=== PATIENT | female | born 1975 | race Caucasian/White ===

== ENCOUNTER 2018-01-19 18:51 | Emergency (ER) | payer MEDICAID ==
[~2018-01-19] VITALS: Ht 162.6 cm; Wt 98.2 kg
[2018-01-19 19:28] LABS: BASOPHILS # (AUTO) 0.06 x10^3/uL (0-0.1); BASOPHILS % (AUTO) 1 % (0-1); EOSINOPHILS # (AUTO) 0.15 x10^3/uL (0-0.4); EOSINOPHILS % (AUTO) 2 % (1-7); LYMPHOCYTES # (AUTO) 2.66 x10^3/uL (1-3.4); LYMPHOCYTES % (AUTO) 33 % (22-44); MD NO; MEAN CORPUSCULAR HEMOGLOBIN 26.3 pg (27.0-34.8); MEAN CORPUSCULAR HGB CONC 32.9 g/dL (32.4-35.8); MEAN CORPUSCULAR VOLUME 79.9 fL (80-100); MEAN PLATELET VOLUME 8.5 fL (7.4-10.4); MONOCYTES # (AUTO) 0.67 x10^3/uL (0.2-0.8); MONOCYTES % (AUTO) 8 % (2-9); NEUTROPHILS # (AUTO) 4.62 x10^3/uL (1.8-6.8); NEUTROPHILS % (AUTO) 57 % (42-75); PLATELET COUNT 345 x10^3/uL (130-400); RED BLOOD COUNT 4.75 x10^6/uL (3.82-5.3); RED CELL DISTRIBUTION WIDTH 15.9 % (9.6-15.2)
[2018-01-19] MEDS ORDERED: SODIUM CHLORIDE FLUSH 10ML SYR IVF ONE (19:30)
[2018-01-19 19:37] LABS: ALBUMIN 3.6 g/dL (3.4-5.0); ANION GAP 6 mmol/L (5-15); CALCIUM 8.3 mg/dL (8.5-10.1); CHLORIDE 111 mmol/L (98-107); CREATININE 0.88 mg/dL (0.55-1.02)
[2018-01-19] MEDS ORDERED: ONDANSETRON ODT 4 MG ONE (19:59)
[2018-01-19] MEDS ORDERED: MAALOX/HYOSCYAMINE/LIDOCAINE 45 ML BTL ONE (19:59)
[2018-01-19] MEDS ORDERED: FAMOTIDINE 20 MG TABLET ONE (19:59)
[2018-01-19] MEDS ORDERED: MAALOX/HYOSCYAMINE/LIDOCAINE 45 ML BTL PO ONE (20:00)
[2018-01-19] MEDS ORDERED: ONDANSETRON ODT 4 MG PO ONE (20:00)
[2018-01-19] MEDS ORDERED: FAMOTIDINE 20 MG TABLET PO ONE (20:00)
[2018-01-19 20:01] LABS: MICROSCOPIC NOT IND
[2018-01-19 20:03] VITALS: BP 170/97
[2018-01-19 20:04] LABS: CULTURE INDICATED? NO
== END 2018-01-19 21:18 | disposition home or self-care (01) ==
LOC: ED 21:12
DX: R10.13 Epigastric pain (principal); R11.0 Nausea; I10 Essential (primary) hypertension
CPT/HCPCS: 36415; 74022; 80048; 81003; 82040; 83690; 85025; 99285; Q0162